=== PATIENT | male | born 1940 | race Caucasian/White ===

== ENCOUNTER → 2018-02-05 | Outpatient (CLI) | payer MEDICARE ==
[~2018-02-05] MED LIST: GADAVIST IV PRN
--- NOTE | 2018-02-05 13:37 | DIAGNOSTIC IMAGING REPORT ---
PROSTATE MRI COMBO CLINICAL HISTORY: Prostate nodule. TECHNIQUE: Multisequence, multiplanar MR imaging of the prostate was performed before and after the intravenous administration of 8 cc of Gadavist IV. Additional postprocessing was performed on a separate [employer] workstation by the radiologist for 3-D volumetric segmentation of the prostate and contouring of region(s) of interest (MELVA) for targeting. COMPARISON: None. FINDINGS: Prostate: The prostate measures 5.1 x 4.9 x 5.5 cm (DynaCAD prostate boundary segmentation volume 55.90 mL). Moderate changes of benign prostatic hyperplasia with marked hypertrophy of the median lobe of the prostate. Precontrast T1 weighted imaging demonstrates no evidence of intrinsic T1 hyperintensity to suggest hemorrhage. No suspicious lesions within the prostate gland are noted. Specifically, there are no foci of restricted diffusion or T2 hypointense lesions within the prostate gland to suggest malignancy. Seminal vesicles normal. Bladder: Normal. Bowel: Visualized portion of the rectum normal. Peritoneum: No free fluid in the pelvis. Lymph nodes: No lymphadenopathy in the visualized portion of the pelvis. Vasculature: Iliac vessels patent. Abdominal wall: Normal. Osseous structures: Normal bone marrow signal intensity. IMPRESSION: 1. No suspicious lesions within the prostate gland. This study is considered a PI-RADS 2 exam: low (clinically significant cancer is unlikely to be present). 2. Moderate benign prostatic hyperplasia with marked hypertrophy of the median lobe. Electronically signed by: Munir Guy M.D. 02/05/2018 1:35 PM Dictated Date/Time: 02/05/2018 1:16 PM
== END | disposition home or self-care (01) ==
LOC: C.MRIBC 10:44
PROVIDERS: ATTEND Urology
DX: N40.0 Benign prostatic hyperplasia without lower urinary tract symptoms (principal)